=== PATIENT | female | born 1960 | race Caucasian/White ===

== ENCOUNTER → 2023-10-24 | Outpatient (CLI) | payer MEDICARE ==
[2023-10-24 13:56] LABS: Source, Urine Clean Catch
[2023-10-24 18:08] LABS: Appearance, Urine Hazy (Clear); Bilirubin, Urine Neg (Neg); Blood, Urine Neg (Neg); Glucose Qualitative, Urine Neg (Neg); Ketones, Urine Neg (Neg); Leukocyte Esterase, Urine Neg (Neg); Nitrite, Urine Pos (Neg); Protein, Urine Neg (Neg); Urobilinogen, Urine NORM (Normal)
[2023-10-24 18:14] LABS: Color, Urine Pale Yellow (P-Yellow)
[2023-10-24 18:15] LABS: Red Blood Cells, Urine 0-2 /hpf (0-2)
[2023-10-24 18:16] LABS: Bacteria Many /hpf; Squamous Epithelial Cells Few /hpf (Few)
== END ==
LOC: LAB 09:57 → LAB SHORT 09:57
DX: E78.5 Hyperlipidemia, unspecified (principal); E11.9 Type 2 diabetes mellitus without complications; I10 Essential (primary) hypertension
CPT/HCPCS: 81001; 82043; 87077; 87086; 87186

== ENCOUNTER → 2024-01-22 | Outpatient (CLI) | payer MEDICARE | END | disposition home or self-care (01) | LOC: LAB SHORT 12:32 → LAB 12:32 | DX: N39.0 Urinary tract infection, site not specified (principal) ==

== ENCOUNTER → 2024-03-10 | Outpatient (CLI) | payer MEDICARE ==
[~2024-03-10] MED LIST: AMLODIPINE BESY10 MG PO; ATOR40TA PO; CEFP200 PO; CYMBALTA30 M2 PO; FAMO20 PO; METFORMIN HCL500 M3 PO; ONDA4ODT MM; OZEMPIC0.25 MG/02 SC; OZEMPIC1 MG/0.72 SC; PANT40 PO; PANTOPRAZOLE SO40 M2 PO; SUCR1 PO; SUMA25 PO; TOPI100; VISBIOME 112.51 EACH PO
== END ==
LOC: LAB SHORT 11:00 → LAB 11:00
DX: N39.0 Urinary tract infection, site not specified (principal)
CPT/HCPCS: 87086